=== PATIENT | female | born 1980 | race Two or more races ===

== ENCOUNTER 2018-05-19 14:00 | Inpatient (IN) | payer OTHER ==
[~2018-05-19] VITALS: Ht 172.7 cm; Wt 145.1 kg
[2018-05-25] MEDS ORDERED: MEGACE ES625 MG/5 M PO (09:54)
== END 2018-05-28 09:40 | DRG 741 ==
LOC: O/R 05-26 05:46 → OB/GYN 05-26 05:46
PROVIDERS: ADMIT Obstetrics & Gynecology Gynecologic Oncology
PROC: 0UT70ZZ Resection of Bilateral Fallopian Tubes, Open Approach (ICD-10-PCS; 2018-05-26)
PROC: 0UT90ZZ Resection of Uterus, Open Approach (ICD-10-PCS; principal; 2018-05-26 20:15)
DX: C54.1 Malignant neoplasm of endometrium (principal)